=== PATIENT | female | born 1985 | race Caucasian/White ===

== ENCOUNTER 2016-08-28 09:30 | Emergency (ER) | payer OTHER, MEDICAID | END 2016-08-28 13:01 | LOC: ED 09:30 | DX: O26.892 Other specified pregnancy related conditions, second trimester (principal); Z3A.17 17 weeks gestation of pregnancy; V49.9XXA Car occupant (driver) (passenger) injured in unspecified traffic accident, initial encounter; Y93.89 Activity, other specified; Y99.8 Other external cause status; Y92.488 Other paved roadways as the place of occurrence of the external cause | CPT/HCPCS: 76815; 99284 ==

== ENCOUNTER 2018-01-02 20:12 | Emergency (ER) | payer MEDICAID, OTHER ==
[~2018-01-02] VITALS: Ht 160 cm; Wt 98.7 kg
[2018-01-02 20:16] VITALS: BP 144/92
== END 2018-01-02 21:06 | disposition left against medical advice (07) ==
LOC: ED 21:00
DX: R10.2 Pelvic and perineal pain (principal); Z53.21 Procedure and treatment not carried out due to patient leaving prior to being seen by health care provider

== ENCOUNTER 2019-10-21 10:29 | Outpatient (CLI) | payer MEDICAID, OTHER | END 2019-10-21 23:59 | disposition home or self-care (01) | LOC: CFH 10:29 | PROVIDERS: ATTEND Family Medicine | DX: M79.671 Pain in right foot (principal); M79.672 Pain in left foot; Q70.23 Fused toes, bilateral ==